=== PATIENT | male | born 1980 | race Caucasian/White ===

== ENCOUNTER 2018-04-03 11:31 | Emergency (ER) | payer SELFPAY ==
--- NOTE | 2018-04-03 13:32 | EDPHYS ---
Physician Documentation [facility] Name: Evelio Lloyd Age: 37 yrs Sex: Male : 1980 Arrival Date: 04/03/2018 Time: 11:35 Bed 11 Private MD: ED Physician Lexa Campos HPI: 04/03 13:26 This 37 yrs old Male presents to ER via Ambulatory with complaints of Sore wa Throat. 13:26 The patient presents with sore throat, fever. body aches. The patient describes throat wa pain as constant. Onset: The symptoms/episode began/occurred yesterday. Severity of symptoms: At their worst the symptoms were moderate, in the emergency department the symptoms are unchanged. Modifying factors: The symptoms are alleviated by nothing, the symptoms are aggravated by foods, swallowing. Associated signs and symptoms: Pertinent positives: chills, fever, Sore throat Pertinent negatives shortness of breath, vomiting. The patient has not experienced similar symptoms in the past. The patient has not recently seen a physician. step-son had similar symptoms most recently. Historical: - Allergies: 11:52 No Known Drug Allergies; hj - Home Meds: 11:52 None [Active]; hj - PMHx: 11:52 None; hj - PSHx: 11:52 None; hj - Immunization history:: Adult Immunizations up to date. - Social history:: Smoking status: Patient uses tobacco products, Patient uses alcohol. - Ebola Screening: : Patient negative for fever greater than or equal to 101.5 degrees Fahrenheit, and additional compatible Ebola Virus Disease symptoms Patient denies exposure to infectious person Patient denies travel to an Ebola-affected area in the 21 days before illness onset. - Family history:: not pertinent. - Hospitalizations: : No recent hospitalization is reported. ROS: 13:27 Eyes: Negative for injury, pain, redness, and discharge, Neck: Negative for injury, wa pain, and swelling, Cardiovascular: Negative for chest pain, palpitations, and edema, Abdomen/GI: Negative for abdominal pain, nausea, vomiting, diarrhea, and constipation, Back: Negative for injury and pain, : Negative for injury, bleeding, discharge, and swelling, MS/Extremity: Negative for injury and deformity, Skin: Negative for injury, rash, and discoloration, Neuro: Negative for headache, weakness, numbness, tingling, and seizure, Psych: Negative for depression, anxiety, suicide ideation, homicidal ideation, and hallucinations. 13:27 Constitutional: Positive for body aches, chills, fatigue, fever, malaise, Negative for weight loss. 13:27 ENT: Positive for sore throat, Negative for ear pain, nasal discharge. 13:27 Respiratory: Positive for cough, with no reported sputum. 13:27 All other systems are negative. Exam: 13:28 Head/Face: Normocephalic, atraumatic. Eyes: Pupils equal round and reactive to light, wa extra-ocular motions intact. Lids and lashes normal. Conjunctiva and sclera are non-icteric and not injected. Cornea within normal limits. Periorbital areas with no swelling, redness, or edema. Neck: Trachea midline, no thyromegaly or masses palpated, and no cervical lymphadenopathy. Supple, full range of motion without nuchal rigidity, or vertebral point tenderness. No Meningismus. Chest/axilla: Normal chest wall appearance and motion. Nontender with no deformity. No lesions are appreciated. Cardiovascular: Regular rate and rhythm with a normal S1 and S2. No gallops, murmurs, or rubs. Normal PMI, no JVD. No pulse deficits. Abdomen/GI: Soft, non-tender, with normal bowel sounds. No distension or tympany. No guarding or rebound. No evidence of tenderness throughout. Back: No spinal tenderness. No costovertebral tenderness. Full range of motion. Skin: Warm, dry with normal turgor. Normal color with no rashes, no lesions, and no evidence of cellulitis. MS/ Extremity: Pulses equal, no cyanosis. Neurovascular intact. Full, normal range of motion. Neuro: Awake and alert, GCS 15, oriented to person, place, time, and situation. Cranial nerves II-XII grossly intact. Motor strength 5/5 in all extremities. Sensory grossly intact. Cerebellar exam normal. Normal gait. Psych: Awake, alert, with orientation to person, place and time. Behavior, mood, and affect are within normal limits. 13:28 Constitutional: The patient appears in no acute distress, alert, febrile. 13:28 ENT: External ear(s): are unremarkable, TM's: are normal, Posterior pharynx: erythema, that is mild. 13:28 Neck: Lymph nodes: lymphadenopathy is appreciated, anterior cervical nodes, Right side. 13:29 Respiratory: the patient does not display signs of respiratory distress, Respirations: wa normal, Breath sounds: are clear throughout, Respiratory rate: normal Vital Signs: 11:53 BP 138 / 91; Pulse 111; Resp 18; Temp 98.3(O); Pulse Ox 98% on R/A; Weight 86.18 kg; hj Height 6 ft. 3 in. (190.50 cm); Pain 6/10; 13:41 BP 125 / 89; Pulse 108; Resp 18; Pulse Ox 99% on R/A; ca1 11:53 Body Mass Index 23.75 (86.18 kg, 190.50 cm) MDM: 12:51 Patient medically screened. nv 13:30 Differential diagnosis: group A strep tonsillitis, pharyngitis, upper respiratory wa infection, viral syndrome. 13:30 Data reviewed: vital signs, nurses notes. Test interpretation: by ED physician or nv midlevel provider: flu screen negative. strep screen negative. Response to treatment: the patient's symptoms have markedly improved after treatment. 04/03 11:54 Order name: Flu; Complete Time: 13:14 04/03 11:54 Order name: Strep; Complete Time: 13:14 04/03 12:21 Order name: Throat Culture EDMS Administered Medications: 13:40 Drug: Tylenol 1000 mg Route: PO; ca1 13:41 Follow up: Response: Medication administered at discharge. ca1 13:40 Drug: Albuterol 2.5 mg Route: Inhalation; ca1 13:41 Drug: Motrin 400 mg Route: PO; ca1 13:41 Follow up: Response: Medication administered at discharge. ca1 Disposition: 04/03/18 13:32 Discharged to Home. Impression: Acute Febrile Illness, Acute Pharyngitis. - Condition is Stable. - Prescriptions for Augmentin 875- 125 mg Oral Tablet - take 1 tablet by ORAL route every 12 hours for 7 days; 14 tablet. Ibuprofen 600 mg Oral Tablet - take 1 tablet by ORAL route every 6 hours As needed take with food; 30 tablet. Albuterol Sulfate 90 mcg/actuation Inhalation - inhale 1-2 puff by INHALATION route every 4-6 hours; 1 Inhaler. - Medication Reconciliation Form, Thank You Letter, Antibiotic Education, Prescription Opioid Use form. - Follow up: Private Physician; When: 1 - 2 days; Reason: Recheck today's complaints. - Problem is new. - Symptoms have improved. - Notes: take medication as prescribed. follow up with your doctor for further evaluation. return here immediately if worsening concerns Signatures: Dispatcher [employer] EDMS Deepka Lloyd, RN RN hj Lexa Campos MD MD wa Acob, Cheryl, RN RN ca1 Corrections: (The following items were deleted from the chart) 13:50 13:32 04/03/2018 13:32 Discharged to Home. Impression: Acute Febrile Illness; Acute ca1 Pharyngitis. Condition is Stable. Forms are Medication Reconciliation Form, Thank You Letter, Antibiotic Education, Prescription Opioid Use. Follow up: Private Physician; When: 1 - 2 days; Reason: Recheck today's complaints. Problem is new. Symptoms have improved. andrea
--- NOTE | 2018-04-03 13:32 | ER ---
Nurse's Notes [facility] Name: Evelio Lloyd Age: 37 yrs Sex: Male : 1980 Arrival Date: 04/03/2018 Time: 11:35 Bed 11 Private MD: Diagnosis: Acute Febrile Illness;Acute Pharyngitis Presentation: 04/03 11:51 Presenting complaint: Patient states: yesterday, i started having sore throat and hj fever; 103 last night; took Motrin; reports body aches;. Transition of care: patient was not received from another setting of care. Onset of symptoms was April 03, 2018. Risk Assessment: Do you want to hurt yourself or someone else? Patient reports no desire to harm self or others. Initial Sepsis Screen: Does the patient meet any 2 criteria? No. Patient's initial sepsis screen is negative. Does the patient have a suspected source of infection? No. Patient's initial sepsis screen is negative. Care prior to arrival: None. 11:51 Method Of Arrival: Ambulatory 11:51 Acuity: SARI 4 hj Triage Assessment: 11:53 General: Appears in no apparent distress. uncomfortable, Behavior is calm, cooperative, hj appropriate for age. Pain: Complains of pain in throat, body. EENT: Reports pain when swallowing. Historical: - Allergies: 11:52 No Known Drug Allergies; hj - Home Meds: 11:52 None [Active]; hj - PMHx: 11:52 None; hj - PSHx: 11:52 None; hj - Immunization history:: Adult Immunizations up to date. - Social history:: Smoking status: Patient uses tobacco products, Patient uses alcohol. - Ebola Screening: : Patient negative for fever greater than or equal to 101.5 degrees Fahrenheit, and additional compatible Ebola Virus Disease symptoms Patient denies exposure to infectious person Patient denies travel to an Ebola-affected area in the 21 days before illness onset. - Family history:: not pertinent. - Hospitalizations: : No recent hospitalization is reported. Screenin:53 Abuse screen: Denies threats or abuse. Denies injuries from another. Nutritional hj screening: No deficits noted. Tuberculosis screening: No symptoms or risk factors identified. Fall Risk None identified. Assessment: 11:53 Respiratory: Airway is patent Respiratory effort is even, unlabored, Respiratory hj pattern is regular, symmetrical, Breath sounds are clear. 12:51 General: Appears in no apparent distress. Behavior is calm, cooperative. Neuro: Level iw of Consciousness is awake, alert, obeys commands. Respiratory: Airway is patent. Derm: Skin is intact, is healthy with good turgor. 13:01 EENT: Throat is pink. ca1 13:41 Reassessment: Patient appears in no apparent distress at this time. Patient and/or ca1 family updated on plan of care and expected duration. Pain level reassessed. Patient is alert, oriented x 3, equal unlabored respirations, skin warm/dry/pink. Vital Signs: 11:53 BP 138 / 91; Pulse 111; Resp 18; Temp 98.3(O); Pulse Ox 98% on R/A; Weight 86.18 kg; hj Height 6 ft. 3 in. (190.50 cm); Pain 6/10; 13:41 BP 125 / 89; Pulse 108; Resp 18; Pulse Ox 99% on R/A; ca1 11:53 Body Mass Index 23.75 (86.18 kg, 190.50 cm) ED Course: 11:35 Patient arrived in ED. as 11:52 Triage completed. hj 11:53 Arm band placed on left wrist. hj 11:53 Patient has correct armband on for positive identification. Bed in low position. Call hj light in reach. Side rails up X 1. 12:40 Kaitlin Levi, RN is Primary Nurse. iw 12:51 Lexa Campos MD is Attending Physician. wa 13:49 No provider procedures requiring assistance completed. Patient did not have IV access ca1 during this emergency room visit. Administered Medications: 13:40 Drug: Tylenol 1000 mg Route: PO; ca1 13:41 Follow up: Response: Medication administered at discharge. ca1 13:40 Drug: Albuterol 2.5 mg Route: Inhalation; ca1 13:41 Drug: Motrin 400 mg Route: PO; ca1 13:41 Follow up: Response: Medication administered at discharge. ca1 Outcome: 13:32 Discharge ordered by . wa 13:49 Discharged to home ambulatory. ca1 13:49 Condition: stable 13:49 Discharge instructions given to patient, Instructed on discharge instructions, follow up and referral plans. medication usage, Demonstrated understanding of instructions, follow-up care, medications, Prescriptions given X 3. 13:50 Patient left the ED. ca1 Signatures: Rosalba Pan Irene, RN RN Deepak Lloyd RN RN Lexa Campos MD MD wa Acob, Cheryl, RN RN ca1 Corrections: (The following items were deleted from the chart) 11:56 11:53 Pulse 111bpm; Resp 18bpm; Pulse Ox 98% RA; Temp 98.3F Oral; 86.18 kg; Height 6 hj ft. 3 in.; BMI: 23.7; Pain 6/10; hj
[2018-04-03] MEDS ORDERED: ALBUTEROL 2.5 MG/3 ML NEB SOL ONE (13:47)
[2018-04-03] MEDS ORDERED: IBUPROFEN 400 MG TAB ONE (13:47)
[2018-04-03] MEDS ORDERED: ACETAMINOPHEN 500 MG TAB ONE (13:48)
== END 2018-04-03 13:50 | disposition home or self-care (01) ==
LOC: ER 11:31
DX: J02.9 Acute pharyngitis, unspecified (principal); Z72.0 Tobacco use
CPT/HCPCS: 87070; 87081; 87804; 99284

== ENCOUNTER 2019-04-05 08:30 | Emergency (ER) | payer SELFPAY ==
--- OUTSIDE RECORDS SUMMARY | 2019-04-05 08:33 | XMS REPORT ---
:1980 Author Organization [facility] Address [address] [place] [address] [address] [place] [address] Care Team Providers Name Role Phone Unavailable Unavailable Unavailable Payers Payer Name Policy Type Policy Number Effective Date Expiration Date Problems This patient has no known problems. Allergies, Adverse Reactions, Alerts Allergy Allergy Status Severity Reaction(s) Onset Inactive Treating Comments Name Type Date Date Clinician No Known DA Active U 2019-01 Allergies 00:00:0 0 Medications This patient has no known medications. Results Test Description Test Time Test Comments Text Results Atomic Results Result Comments COMPREHENSIVE METABOLIC PANEL 2019-02-21 23:03:00 Test Item Value Reference Range Comments SODIUM (test code=NA) 144 mmol/L 134-147 POTASSIUM (test code=K) 3.8 mmol/L 3.4-5.0 CHLORIDE (test code=CL) 113 mmol/L 100-108 CARBON DIOXIDE (test code=CO2) 24 mmol/L 21-32 ANION GAP (test code=GAP) 7.0 GAP calc 4.0-15.0 GLUCOSE (test code=GLU) 105 MG/DL 70-110 BLOOD UREA NITROGEN (test code=BUN) 17 MG/DL 7-18 GLOMERULAR FILTRATION RATE (test code=GFR) >=60 max estimate estGFR >60 CREATININE (test code=CREAT) 0.9 MG/DL 0.8-1.3 TOTAL PROTEIN (test code=PROT) 6.6 G/DL 6.4-8.2 ALBUMIN (test code=ALB) 3.7 G/DL 3.4-5.0 GLOBULIN (test code=GLOB) 2.9 GM/dL ALBUMIN/GLOBULIN RATIO (test code=A/G) 1.3 RATIO 1.2-2.2 CALCIUM (test code=CA) 8.1 MG/DL 8.5-10.1 BILIRUBIN TOTAL (test code=BILT) <0.10 MG/DL 0.2-1.2 SGOT/AST (test code=AST) 34 Unit/L 15-37 SGPT/ALT (test code=ALT) 28 Unit/L 12-78 ALKALINE PHOSPHATASE TOTAL (test code=ALKP) 91 Unit/L 50-136 CBC W/AUTO [id number] 22:49:00 Test Item Value Reference Range Comments WHITE BLOOD CELL (test code=WBC) 10.1 K/mm3 3.5-11.0 RED BLOOD CELL (test code=RBC) 3.97 M/mm3 4.70-6.10 HEMOGLOBIN (test code=HGB) 13.1 G/DL 12.3-15.9 HEMATOCRIT (test code=HCT) 38.0 % 35.8-46.7 MEAN CELL VOLUME (test code=MCV) 95.7 Fl 86.3-98.9 MEAN CELL HGB (test code=MCH) 33.0 pg 28.9-34.4 MEAN CELL HGB CONCETRATION (test code=MCHC) 34.5 G/DL 32.1-34.5 RED CELL DISTRIBUTION WIDTH (test code=RDW) 13.6 SD 11.5-14.5 PLATELET COUNT (test code=PLT) 291.0 K/mm3 150-450 MEAN PLATELET VOLUME (test code=MPV) 9.00 fL 7.0-9.6 NEUTROPHIL % (test code=NT%) 55.6 % 40-76 LYMPHOCYTE % (test code=LY%) 31.3 % 20.5-51.1 MONOCYTE % (test code=MO%) 9.6 % 1.7-9.3 EOSINOPHIL % (test code=EO%) 3.1 % 0.0-6.0 BASOPHIL % (test code=BA%) 0.4 % 0.0-2.0 NEUTROPHIL # (test code=NT#) 5.62 K/mm3 1.8-7.6 LYMPHOCYTE # (test code=LY#) 3.2 K/mm3 0.6-3.0 MONOCYTE # (test code=MO#) 1.0 K/mm3 0.2-1.5 EOSINOPHIL # (test code=EO#) 0.3 K/mm3 0.0-0.4 BASOPHIL # (test code=BA#) 0.0 K/mm3 0.0-0.2 MANUAL DIFF REQUIRED (test code=MDIFF) NO DIFF/SCN CRITERIA - XR L-SPINE 2/3 [id number] 22:30:00 Name: RO CONTRERAS [place] : 1980 Age/S: 38 / M [address] [facility] Unit #: [id number] Loc: [place] [address] Phys: Abe Morris MD Acct: [id number] Dis Date: Status : REG ER PHONE #: [phone] Exam Date: 02/21/20192219 FAX #: Reason: low backpain EXAMS: CPT: [id number] XR L-SPINE 2/3 VIEWS 50188 Fluoro Time: DAP (Gy m2): Air Kerma (mGy): R16 EXAM: - XR L-SPINE 2/3 VIEWS INDICATION: low back pain COMPARISON: None FINDINGS : For purposes of this dictation, it is assumed that there are 5 lumbar type vertebral bodies. No acute fracture. There is normal alignment of the lumbar spine. Vertebral bodies are normal in height. Disc heights are maintained. IMPRESSION: No acutelumbar spine abnormality. Electronically Signed by Jose Lopez on at 2230 Reported and signed by: Jt Lopez M.D. CC: PAGE 1 Signed Report Name: RO CONTRERAS [place] : 1980Age/S: 38 / M [address] [place] [address] Unit #: [id number] Loc: [place] [address] Phys: Abe Morris MD Acct: [id number] Dis Date: Status: REG ER PHONE# : [phone] Exam Date: 02/21/20192219 FAX #: Reason: low back pain EXAMS: CPT: [id number] XR L-SPINE 2/3 VIEWS 12718 Fluoro Time: DAP (Gy m2): Air Kerma (mGy): &lt ;Continued> Technologist: Tessa Patel RT(R)(CT)(MRI) Trnscb Date/Time: 02/21/2019 (2229) [id number] Orig Print D/T: S : 02/21/2019 (2232) PAGE 2 Signed Report- CT HEAD/BRAIN W/O [id number] 21:45:00 Name: RO CONTRERAS [place] : 1980 Age/S: 38 / M [address] [address] Unit #: [id number] Loc: [place] [address] Phys: Abe Morris MD Acct: [id number] Dis Date : Status: PRE ER PHONE #: [phone] Exam Date: 02/21/20192139 FAX #: Reason: left arm paresthesia EXAMS: CPT: [id number] CT HEAD/ BRAIN W/O CONT 36133 DICTATION LOCATION: H48 HISTORY: Male, 38 years of age with left arm paresthesiaEXAM: CT BRAIN WITHOUT CONTRAST COMPARISON: None TECHNIQUE: Helical axial images were obtained through the brain without IV contrast. Coronal and sagittal reformats were performed. One or more of the following dose reduction techniques were used: Automated exposure control; adjustment of the mA and/or kV according to the patient size; and/or use ofiterative reconstruction technique. FINDINGS: There is no acute intra-axial or extra-axial hemorrhage, mass, mass effect or midline shift. No acute loss of the cortical kitchen/white junctions. No hydrocephalus. There is no acute calvarial fracture. The sinuses and mastoids are clear. IMPRESSION: Unremarkable CT brain without IV contrast. at 2145 Reported and signed by: Mary Chand MD CC: Technologist:Karine Galeas RT(R) CTDI: DLP: Trnscb Date/Time: 02/21/2019 (2144) SachinW Orig Print D/T: S: 02/21/2019 (2147) PAGE 1 SignedReport
--- NOTE | 2019-04-05 08:55 | EDPHYS ---
Physician Documentation [facility] Name: Evelio Lloyd Age: 38 yrs Sex: Male : 1980 Arrival Date: 04/05/2019 Time: 08:32 Bed 20 Private MD: ED Physician Baljinder Luna HPI: 04/05 08:47 This 38 yrs old Male presents to ER via Ambulatory with complaints of Back rn Pain, Shoulder Pain. 08:47 The patient presents with pain that is chronic. The symptoms are located in the low rn back. Onset: The symptoms/episode began/occurred 1 year(s) ago. The pain radiates to the right arm and right leg. Associated signs and symptoms: Pertinent positives: none Pertinent negatives: abdominal pain, chest pain, fever, hematuria, incontinence, numbness, tingling, urinary retention. Modifying factors: The patient symptoms are alleviated by OTC meds, the patient symptoms are aggravated by any movement. Severity of symptoms: At their worst the symptoms were moderate, in the emergency department the symptoms are unchanged. The patient has experienced similar episodes in the past, chronically. Reports chronic right shoulder and low back pain, > 1year, no recent trauma, has been alternating tylenol and motrin/aleve, reports worse in morning, didn't take anything today. No gross changes recently. . Historical: - Allergies: 08:41 No Known Allergies; ss - Home Meds: 08:41 None [Active]; ss - PMHx: 08:41 None; ss - PSHx: 08:41 None; ss - Immunization history:: Adult Immunizations up to date. - Coronavirus screen:: The patient has NOT traveled to [place], [place], or [place] in the past 14 days. Proceed with normal triage process as indicated. - Social history:: Smoking status: Patient/guardian denies using tobacco, Stopped _ months ago 1. - Family history:: not pertinent. - Ebola Screening: : Patient denies exposure to infectious person Patient denies travel to an Ebola-affected area in the 21 days before illness onset. - Hospitalizations: : No recent hospitalization is reported. ROS: 08:47 Constitutional: Negative for fever, chills, and weight loss, Eyes: Negative for injury, rn pain, redness, and discharge, Cardiovascular: Negative for chest pain, palpitations, and edema, Respiratory: Negative for shortness of breath, cough, wheezing, and pleuritic chest pain, Abdomen/GI: Negative for abdominal pain, nausea, vomiting, diarrhea, and constipation, MS/Extremity: + right shoulder pain, neg for injury Skin: Negative for injury, rash, and discoloration, Neuro: Negative for headache, weakness, numbness, tingling, and seizure. Exam: 08:47 Constitutional: This is a well developed, well nourished patient who is awake, alert, rn and in no acute distress. Head/Face: Normocephalic, atraumatic. Neck: No vertebral point tenderness. MS/ Extremity: Pulses equal, no cyanosis. Neurovascular intact. + painful ROM with external rotation, no gross deformity or swelling. + RLE straight-leg raise and crossed straight-leg raise. Neuro: Awake and alert, GCS 15, oriented to person, place, time, and situation. Cranial nerves II-XII grossly intact. Motor strength 5/5 in all extremities. Sensory grossly intact. Cerebellar exam normal. Normal gait. Vital Signs: 08:41 BP 125 / 88; Pulse 95; Resp 16; Temp 97.8(TE); Pulse Ox 98% on R/A; Weight 83.01 kg; ss Height 6 ft. 2 in. (187.96 cm); Pain 10/10; 08:41 Body Mass Index 23.50 (83.01 kg, 187.96 cm) ss MDM: 08:36 Patient medically screened. rn 08:47 Differential diagnosis: arthritis, chronic back pain, radiculopathy, tendinitis, muscle rn spasm. Data reviewed: vital signs, nurses notes, and as a result, I will discharge patient. Counseling: I had a detailed discussion with the patient and/or guardian regarding: the historical points, exam findings, and any diagnostic results supporting the discharge/admit diagnosis, the need for outpatient follow up, to return to the emergency department if symptoms worsen or persist or if there are any questions or concerns that arise at home. Special discussion: I discussed with the patient/guardian in detail that at this point there is no indication for admission to the hospital. It is understood, however, that if the symptoms persist or worsen the patient needs to return immediately for re-evaluation. Further emergent ED testing is not indicated at this point in time. I discussed with the patient/guardian in detail the need to arrange with the PCP or specialist further outpatient testing, MRI, Based on the history and exam findings, there is no indication for further emergent testing or inpatient evaluation. I discussed with the patient/guardian the need to see the back specialist for further evaluation of the symptoms. I discussed with the patient/guardian the need to see the mobile paint specialist for further evaluation of the symptoms. I discussed with the patient/guardian the need to see the primary care provider for further evaluation of the symptoms. Administered Medications: No medications were administered Disposition: 04/05/19 08:53 Discharged to Home. Impression: Radiculopathy, lumbosacral region, Muscle spasm of back, Tendinitis, unspecified, of right shoulder. - Condition is Stable. - Discharge Instructions: Lumbosacral Radiculopathy, Muscle Cramps and Spasms, Rotator Cuff Tendinitis. - Prescriptions for Cyclobenzaprine 10 mg Oral Tablet - take 1 tablet by ORAL route every 8 hours As needed; 15 tablet. Medrol (Nino) 4 mg Oral Tablets, Dose Pack - take 1 tablet by ORAL route as directed - follow package instructions; 1 packet. - Medication Reconciliation Form, Thank You Letter, Antibiotic Education, Prescription Opioid Use form. - Follow up: Private Physician; When: As needed; Reason: Recheck today's complaints, Re-evaluation by your physician. - Problem is chronic. - Symptoms are unchanged. Signatures: Baljinder Luna MD MD rn Smirch, Shelby, RN RN Miguel Vidal RN RN bp Corrections: (The following items were deleted from the chart) 09: 08:53 04/05/2019 08:53 Discharged to Home. Impression: Radiculopathy, lumbosacral bp region; Muscle spasm of back; Tendinitis, unspecified, of right shoulder. Condition is Stable. Forms are Medication Reconciliation Form, Thank You Letter, Antibiotic Education, Prescription Opioid Use. Follow up: Private Physician; When: As needed; Reason: Recheck today's complaints, Re-evaluation by your physician. Problem is chronic. Symptoms are unchanged. rn
--- NOTE | 2019-04-05 08:55 | ER ---
Nurse's Notes [facility] Name: Evelio Lloyd Age: 38 yrs Sex: Male : 1980 Arrival Date: 04/05/2019 Time: 08:32 Bed 20 Private MD: Diagnosis: Radiculopathy, lumbosacral region;Muscle spasm of back;Tendinitis, unspecified, of right shoulder Presentation: 04/05 08:39 Presenting complaint: Patient states: R arm pain x years and R low back pain after ss having shingles 1 year ago. Pt states that over the counter medication are not helping anymore. Transition of care: patient was not received from another setting of care. Onset of symptoms is unknown. Risk Assessment: Do you want to hurt yourself or someone else? Patient reports no desire to harm self or others. Initial Sepsis Screen: Does the patient meet any 2 criteria? HR > 90 bpm. Does the patient have a suspected source of infection? No. Patient's initial sepsis screen is negative. Care prior to arrival: None. 08:39 Method Of Arrival: Ambulatory ss 08:39 Acuity: SARI 5 ss Triage Assessment: 08:42 General: Appears in no apparent distress. comfortable, Behavior is calm, cooperative, ss is laughing/ joking with ED staff and family member in there room. . Derm: Skin is intact, is healthy with good turgor, Skin is dry, Skin is pink, warm \T\ dry. normal. Musculoskeletal: Range of motion: intact in all extremities. Historical: - Allergies: 08:41 No Known Allergies; ss - Home Meds: 08:41 None [Active]; ss - PMHx: 08:41 None; ss - PSHx: 08:41 None; ss - Immunization history:: Adult Immunizations up to date. - Coronavirus screen:: The patient has NOT traveled to [place], [place], or [place] in the past 14 days. Proceed with normal triage process as indicated. - Social history:: Smoking status: Patient/guardian denies using tobacco, Stopped _ months ago 1. - Family history:: not pertinent. - Ebola Screening: : Patient denies exposure to infectious person Patient denies travel to an Ebola-affected area in the 21 days before illness onset. - Hospitalizations: : No recent hospitalization is reported. Screenin:58 Abuse screen: Denies threats or abuse. Denies injuries from another. Nutritional bp screening: No deficits noted. Tuberculosis screening: No symptoms or risk factors identified. Fall Risk None identified. Assessment: 08:45 General: SEE TRIAGE NOTE. Pain: Complains of pain in right leg and right arm. Neuro: bp Level of Consciousness is awake, alert, obeys commands, Oriented to person, place, time, situation, Appropriate for age Gait is steady. 09:01 Reassessment: PT D/C HOME AMBULATORY WITH FAMILY, DX WITH RADICULOPATHY. bp Vital Signs: 08:41 BP 125 / 88; Pulse 95; Resp 16; Temp 97.8(TE); Pulse Ox 98% on R/A; Weight 83.01 kg; ss Height 6 ft. 2 in. (187.96 cm); Pain 10/10; 08:41 Body Mass Index 23.50 (83.01 kg, 187.96 cm) ED Course: 08:32 Patient arrived in ED. ag5 08:36 Baljinder Luna MD is Attending Physician. rn 08:39 Miguel Vidal, GRACY is Primary Nurse. bp 08:40 Triage completed. ss 08:41 Arm band placed on right wrist. 08:58 Patient has correct armband on for positive identification. Bed in low position. Call bp light in reach. Side rails up X2. Adult w/ patient. 09:02 No provider procedures requiring assistance completed. Patient did not have IV access bp during this emergency room visit. Administered Medications: No medications were administered Outcome: 08:53 Discharge ordered by . rn 09:02 Discharged to home ambulatory, with family. bp 09:02 Condition: stable 09:02 Discharge instructions given to patient, Instructed on discharge instructions, follow up and referral plans. medication usage, Demonstrated understanding of instructions, follow-up care, medications, Prescriptions given X 2. 09:02 Patient left the ED. bp Signatures: Baljinder Luna MD MD rn Smirch, Shelby, RN RN Miguel Vidal, GRACY RN Vani Mccain ag5
[2019-04-05 09:07] VITALS: BP 125/88; TEMP 97.8; O2SAT 98
== END 2019-04-05 09:02 | disposition home or self-care (01) ==
LOC: ER 08:30
DX: M54.17 Radiculopathy, lumbosacral region (principal); M62.830 Muscle spasm of back; M75.91 Shoulder lesion, unspecified, right shoulder
CPT/HCPCS: 99282